=== PATIENT | female | born 1970 | race African-American/Black ===

== ENCOUNTER 2016-09-25 15:29 | Emergency (ER) | payer BC, OTHER ==
[2016-09-25 15:36] VITALS: BP 132/82; PULSE 58; TEMP 98; BMI 37.1
--- NOTE | 2016-09-25 17:15 | PDOC ---
History of Present Illness - General Chief Complaint: Injury Stated Complaint: FALL/ BACK, NECK PAIN Time Seen by Provider: 09/25/16 17:03 History Source: Patient Exam Limitations: No Limitations - History of Present Illness Initial Comments: 09/25/16 17:19 Chief complaint: Left lateral neck pain and left upper medial back History of present illness: Patient is a 46-year-old female with a history of hypertension here today after she fell on 09/22/2016 on 5-6 steps and tried to brace her fall by grabbing the railing on the stairs with her left arm and hand. Reports that she did not feel any pain initially however later she felt pain in her left upper back medial to her scapula and pain to her left lateral neck area. Patient denies any numbness of her arm. Patient denies hitting her head. Patient has been applying icy hot taking Tylenol for pain. She has been apply hot and warm cloths, pain is slightly better. Patient has full range of motion of left arm and neck. 09/25/16 17:23 09/25/16 17:28 Occurred: reports: other (09/22/16) Severity: reports: moderate Pain Location: reports: back (medial to left scapula), neck (left lateral neck, left medial scapular area ) Method of Injury: Yes: fall (tired to stop fall holding onto a railing with left hand/arm) Modifying Factors: improves with: None Loss of Consciousness: no loss of consciousness Associated Symptoms (Fall): neck pain (left lateral ) Past History - Past Medical History Allergies/Adverse Reactions: Allergies Allergy/AdvReac Type Severity Reaction Status Date / Time No Known Allergies Allergy Verified 09/25/16 15:32 Home Medications: Ambulatory Orders Amlodipine Besylate [Norvasc -] 10 mg PO DAILY 07/29/14 Naproxen [Naprosyn -] 500 mg PO BID PRN #14 tablet 09/25/16 HTN: Yes - Psycho/Social/Smoking Cessation Hx Anxiety: No Suicidal Ideation: No Smoking Status: No Smoking History: Never smoked Have you smoked in the past 12 months: No Number of Cigarettes Smoked Daily: 0 Information on smoking cessation initiated: No Hx Alcohol Use: No Drug/Substance Use Hx: No Substance Use Type: Alcohol Review of Systems - Review of Systems Able to Perform ROS?: Yes Constitutional: No: Symptoms Reported HEENTM: No: Symptoms Reported Respiratory: No: Symptoms reported Cardiac (ROS): No: Symptoms Reported ABD/GI: No: Symptoms Reported : No: Symptoms Reported Musculoskeletal: Yes: Neck Pain (left lateral ), Other (left upper back pain medial to scapula) Integumentary: No: Symptoms Reported Neurological: No: Symptoms reported *Physical Exam - Vital Signs Last Vital Signs Temp Pulse Resp BP Pulse Ox 98.0 F 58 L 18 132/82 100 09/25/16 15:32 09/25/16 15:32 09/25/16 15:32 09/25/16 15:32 09/25/16 15:32 - Physical Exam General Appearance: Yes: Appropriately Dressed Neck: positive: Tender (left lateral ), Tender lateral (left lateral ). negative: Decreased range of motion, Lymphadenopathy (R), Lymphadenopathy (L), Rigidity, Tender midline Respiratory/Chest: positive: Lungs Clear, Normal Breath Sounds. negative: Chest Tender, Respiratory Distress Cardiovascular: positive: Regular Rhythm, Regular Rate, S1, S2 Musculoskeletal: positive: Normal Inspection, Other (left upper back medial to scapula). negative: CVA Tenderness, CVA Tenderness (R), CVA Tenderness (L) Extremity: positive: Normal Capillary Refill, Normal Inspection, Normal Range of Motion (b/l arms ) Integumentary: positive: Normal Color Neurologic: positive: Fully Oriented, Alert, Normal Response, Motor Strength 5/ 5 (upper extremities ), Responsive. negative: Respond to painful stimul (b/l arms ), Numbness, Sensory Deficit Medical Decision Making - Medical Decision Making 09/25/16 17:23 Patient is a 46-year-old female with a history of hypertension here today after she fell on 09/22/2016 on 5-6 steps and tried to brace her fall by grabbing the railing on the stairs with her left arm and hand. Reports that she did not feel any pain initially however later she felt pain in her left upper back medial to her scapula and pain to her left lateral neck area. Patient denies any numbness of her arm. Patient denies hitting her head. Patient has been applying icy hot taking Tylenol for pain. She has been apply hot and warm cloths, pain is slightly better. Patient has full range of motion of left arm and neck. Left lateral neck strain and left upper back strain medial to the scapular Plan: Follow-up with orthopedist as soon as possible for further evaluation Naprosyn 500 mg twice a day as needed for pain #14 tabs take after eating *DC/Admit/Observation/Transfer Diagnosis at time of Disposition: Strain of neck muscle Qualifiers: Encounter type: initial encounter Qualified Code(s): S16.1XXA - Strain of muscle, fascia and tendon at neck level, initial encounter Muscle strain of left upper back Qualifiers: Encounter type: initial encounter Qualified Code(s): S29.012A - Strain of muscle and tendon of back wall of thorax, initial encounter - Discharge Dispostion Disposition: HOME Condition at time of disposition: Stable - Prescriptions Prescriptions: Naproxen [Naprosyn -] 500 mg PO BID PRN #14 tablet PRN Reason: Pain - Referrals Referrals: Adam Wheat [Primary Care Provider] - Vasquez Kay MD [Staff Physician] - - Patient Instructions Additional Instructions: Follow up with orthopedist as soon as possible Avoid doing any strenuous activities with your left arm Return to emergency room if symptoms worsen any numbness of your left arm or worsening pain Patient voiced understanding of discharge instructions and all questions were answered
== END 2016-09-25 17:32 | disposition home or self-care (01) ==
LOC: JERFT 15:29
DX: S16.1XXA Strain of muscle, fascia and tendon at neck level, initial encounter (principal); S29.012A Strain of muscle and tendon of back wall of thorax, initial encounter; W10.9XXA Fall (on) (from) unspecified stairs and steps, initial encounter; Y93.89 Activity, other specified; Y92.9 Unspecified place or not applicable; I10 Essential (primary) hypertension
CPT/HCPCS: 99281-25

== ENCOUNTER 2018-06-29 13:52 | Emergency (ER) | payer BC ==
[2018-06-29 14:15] VITALS: BP 124/64; PULSE 54; TEMP 98.1; BMI 38.4
--- NOTE | 2018-06-29 14:29 | PDOC ---
History of Present Illness - General Chief Complaint: Abrasion Stated Complaint: BRUISED BOTH LOWER LEGS FELL DOWN 3 STEPS Time Seen by Provider: 06/29/18 14:29 - History of Present Illness Initial Comments: 06/29/18 14:41 48 year old woman with a history of HTN who presents after falling onto her shins and knees while walking down stairs while drinking last night. She reports she was able to stand up immediately did not have ankle pain and has not had instability while walking. She has taken Tylenol for pain this AM. She denies any other symptoms. Denies head trauma or neck trauma from the fall Past History - Past Medical History Allergies/Adverse Reactions: Allergies Allergy/AdvReac Type Severity Reaction Status Date / Time No Known Allergies Allergy Verified 06/29/18 13:55 Home Medications: Ambulatory Orders Amlodipine Besylate [Norvasc -] 10 mg PO DAILY 07/29/14 Cholecalciferol (Vitamin D3) [Vitamin D3] 1,000 unit PO DAILY 06/29/18 Ferrous Sulfate [Iron] 325 mg PO DAILY 06/29/18 Zolpidem Tartrate [Ambien] 10 mg PO HS 06/29/18 COPD: No HTN: Yes - Suicide/Smoking/Psychosocial Hx Smoking Status: No Smoking History: Never smoked Have you smoked in the past 12 months: No Number of Cigarettes Smoked Daily: 0 Hx Alcohol Use: Yes (SOCIAL) Drug/Substance Use Hx: No Substance Use Type: Alcohol Review of Systems - Review of Systems Able to Perform ROS?: Yes Comments:: 06/29/18 14:50 GENERAL/CONSTITUTIONAL: No fever or chills. No weakness. HEAD, EYES, EARS, NOSE AND THROAT: No change in vision. No ear pain or discharge. No sore throat. CARDIOVASCULAR: No chest pain or shortness of breath RESPIRATORY: No cough, wheezing, or hemoptysis. GASTROINTESTINAL: No nausea, vomiting, diarrhea or constipation. GENITOURINARY: No dysuria, frequency, or change in urination. MUSCULOSKELETAL: No joint or muscle swelling + vick pain. No neck or back pain. SKIN: No rash NEUROLOGIC: No headache, vertigo, loss of consciousness, or change in strength/ sensation. ENDOCRINE: No increased thirst. No abnormal weight change HEMATOLOGIC/LYMPHATIC: No anemia, easy bleeding, or history of blood clots. ALLERGIC/IMMUNOLOGIC: No hives or skin allergy. Is the patient limited French proficient: No *Physical Exam - Vital Signs Last Vital Signs Temp Pulse Resp BP Pulse Ox 98.1 F 54 L 16 124/64 100 06/29/18 13:54 06/29/18 13:54 06/29/18 13:54 06/29/18 13:54 06/29/18 13:54 - Physical Exam Comments: 06/29/18 14:45 GENERAL: Awake, alert, and fully oriented, in no acute distress HEAD: No signs of trauma, normocephalic, atraumatic EYES: EOMI, sclera anicteric, conjunctiva clear ENT: oropharynx clear without exudates. Moist mucosa NECK: Normal ROM, supple LUNGS: No distress, speaks full sentences, clear to auscultation bilaterally HEART: Regular rate and rhythm, normal S1 and S2, no murmurs, rubs or gallops, peripheral pulses normal and equal bilaterally. ABDOMEN: Soft, nontender, normoactive bowel sounds. No guarding, no rebound. No masses EXTREMITIES : Normal range of motion, no edema. No clubbing or cyanosis. small L vick abrasion, R vick with hematoma, warm to touch with point tenderness to mid tibial palpation NEUROLOGICAL: Cranial nerves II through XII grossly intact. Normal speech, normal gait, no focal sensorimotor deficits SKIN: Warm, Dry, normal turgor, no rashes or lesions noted Medical Decision Making - Medical Decision Making 06/29/18 14:45 48 year old woman with a history of HTN who presents after falling onto her shins and knees while walking down stairs while drinking last night. She reports she was able to stand up immediately did not have ankle pain and has not had instability while walking. She has taken Tylenol for pain this AM. She denies any other symptoms. Denies head trauma or neck trauma from the fall ED Course r/o fx, pain control 06/29/18 15:30 Tylenol dosed XR without findgins. advsied to f/u with pcp *DC/Admit/Observation/Transfer Diagnosis at time of Disposition: Leg pain, Ecchymosis - Discharge Dispostion Disposition: HOME Condition at time of disposition: Stable Decision to Admit order: No - Referrals - Patient Instructions Printed Discharge Instructions: DI for Leg Pain Additional Instructions: You were seen in the ED for complaints of leg pain after a fall. In the ED you were evaluated with imaging and treated with pain medications. Your results were unremarkable. There does not appear to be an acute need for immediate hospitalization. You are advised to follow up with your Primary Care Physician within 1 week. Take over the counter Tylenol and Motrin for pain relief. Rest and ice your leg. Return to the ED immediately if you experience worsening leg pain, numbness, tingling, pale color, muscle weakness, ankle pain or knee pain. - Post Discharge Activity
[2018-06-29] MEDS ORDERED: ACETAMINOPHEN 500 MG TABLET (FP) PO ONE (14:36)
[2018-06-29] MEDS ORDERED: IBUPROFEN 600 MG TABLET (FP) PO ONE ×2 (14:37→14:46)
[2018-06-29] MEDS ORDERED: ACETAMINOPHEN 500 MG TABLET (FP) ONE (14:46)
--- NOTE | 2018-06-29 15:55 | PDOC ---
Attending Attestation - Resident Resident Name: Lani Neff - ED Attending Attestation I have performed the following: I have examined & evaluated the patient, The case was reviewed & discussed with the resident, I agree w/resident's findings & plan, Exceptions are as noted - HPI HPI: 06/29/18 15:55 Reviewed residents HPI - Physicial Exam PE: 06/29/18 15:55 Reviewed Residents PE - Medical Decision Making 06/29/18 16:03 Bruises to bilateral shins right greater than left X-ray demonstrates no acute fracture dislocation Contusion recommend rest ice [id number] pain medication Findings, need for follow-up and strict return instructions discussed patient.
== END 2018-06-29 15:37 | disposition home or self-care (01) ==
LOC: FER 13:52
DX: M79.605 Pain in left leg (principal); M79.604 Pain in right leg; I10 Essential (primary) hypertension; W18.39XA Other fall on same level, initial encounter; Y93.89 Activity, other specified; Y92.89 Other specified places as the place of occurrence of the external cause
CPT/HCPCS: 73590-TC-RT-FY; 99281-25